=== PATIENT | female | born 2000 | race Caucasian/White ===

== ENCOUNTER 2018-03-18 14:09 | Inpatient (IN) | payer MEDICAID ==
[2018-03-18 15:29] LABS: RUPTURE FETAL MEMBRANES NEGATIVE (NEGATIVE)
[2018-03-18] MEDS: DEXTROSE 5%-LR 1,000 ML IV ×2 (15:52→23:52)
[2018-03-18] MEDS ORDERED: OXYTOCIN 30 UNITS/LR 500 ML IV (16:00)
[2018-03-18] MEDS ORDERED: METHYLERGONOVINE 0.2 MG INJ IM (16:00)
[2018-03-18] MEDS ORDERED: LIDOCAINE 1% (MPF) 30 ML INJ INJ (16:00)
[2018-03-18] MEDS ORDERED: CARBOPROST 250 MCG INJ IM (16:00)
[2018-03-18] MEDS ORDERED: MISOPROSTOL 200 MCG TAB PR (16:00)
[2018-03-18] MEDS ORDERED: IBUPROFEN 600 MG TAB PO (16:00)
[2018-03-18] MEDS ORDERED: BUTORPHANOL 2 MG INJ IV (16:00)
[2018-03-18] MEDS: AMPICILLIN 2 GM/NS (PMX) 100 ML IV (16:22)
[2018-03-18 16:24] LABS: ADD MAN DIFF? NO
[2018-03-18 16:28] LABS: WHITE BLOOD COUNT 8.8 10^3/ul (4.8-10.8)
[2018-03-18 16:28] LABS: BASOPHILS % 0.3 % (0.0-2.0); EOSINOPHILS # 0.1 10^3/ul (0.0-0.5); EOSINOPHILS % 1.6 % (0.0-7.0); HEMATOCRIT 29.8 % (37.0-47.0); LYMPHOCYTES # 1.8 10^3/ul (0.8-2.9); LYMPHOCYTES % 20.8 % (18.0-55.0); MEAN CORPUSCULAR HEMOGLOBIN 27.9 pg (29.0-33.0); MEAN CORPUSCULAR HGB CONC 33.6 g/dl (32.0-37.0); MEAN CORPUSCULAR VOLUME 83.2 fl (72.0-104.0); MONOCYTE # 0.7 10^3/ul (0.3-0.9); MONOCYTES % 7.5 % (0.0-13.0); NEUTROPHIL # 6.1 10^3/ul (1.6-7.5); NEUTROPHILS % 69.2 % (30.0-74.0); PLATELET COUNT 209 10^3/UL (140-415); RED BLOOD COUNT 3.58 10^6/ul (4.20-5.40); RED CELL DISTRIBUTION WIDTH 15.1 % (11.5-14.5)
[2018-03-18 16:48] LABS: INR 0.87; PROTIME 11.9 Sec (11.9-14.9); PT RATIO 0.9
[2018-03-18 16:49] LABS: PARTIAL THROMBOPLASTIN TIME 25.1 Sec (23.0-35.0)
[2018-03-18 17:17] LABS: HEPATITIS B SURFACE ANTIGEN NEGATIVE (NEGATIVE)
[2018-03-18 19:11] LABS: HIV 1&2 ANTIBODY NEGATIVE (NEGATIVE)
[2018-03-18] MEDS: LACTATED RINGER'S 1,000 ML IV ×2 (19:40→23:49)
[2018-03-18] MEDS: AMPICILLIN 1 GM/NS (PMX) 50 ML IV ×2 (19:57→23:29)
[2018-03-18 22:59] LABS: AMPHETAMINE/METHAMPHETAMINE Negative (NEGATIVE); BARBITURATES Negative (NEGATIVE); BENZODIAZEPINES Negative (NEGATIVE); CANNABINOIDS Negative (NEGATIVE); COCAINE Negative (NEGATIVE); OPIATES Negative (NEGATIVE)
[2018-03-19] MEDS ORDERED: FENTAnyl 2MCG/ML-ROPIV 0.2% 100 ML (00:10)
[2018-03-19] MEDS ORDERED: DIPHENHYDRAMINE 50 MG INJ IV (00:30)
[2018-03-19] MEDS ORDERED: NALBUPHINE HCL (10 MG/1 ML) INJ IV (00:30)
[2018-03-19] MEDS ORDERED: NALOXONE (0.4 MG/ML) INJ IV (00:30)
[2018-03-19] MEDS ORDERED: ONDANSETRON 4 MG INJ IV (00:30)
[2018-03-19] MEDS: AMPICILLIN 1 GM/NS (PMX) 50 ML IV ×2 (03:56→08:14)
[2018-03-19] MEDS: LACTATED RINGER'S 1,000 ML IV ×2 (06:01→17:30)
[2018-03-19] MEDS: DEXTROSE 5%-LR 1,000 ML IV ×3 (07:52→23:52)
[2018-03-19] MEDS: FENTAnyl 2MCG/ML-ROPIV 0.2% 100 ML BAG EPI (08:13)
[2018-03-19] MEDS: OXYTOCIN 30 UNITS/LR 500 ML IV ×3 (09:15→15:32)
[2018-03-19] MEDS ORDERED: ZOLPIDEM 5 MG TAB PO (11:00)
[2018-03-19] MEDS ORDERED: OXYTOCIN 30 UNITS/LR 500 ML IV (11:00)
[2018-03-19] MEDS ORDERED: SENNA/DOCUSATE NA (8.6MG/50MG) TAB PO (11:00)
[2018-03-19] MEDS ORDERED: METHYLERGONOVINE 0.2 MG INJ IM (11:00)
[2018-03-19] MEDS ORDERED: MISOPROSTOL 200 MCG TAB PR (11:00)
[2018-03-19] MEDS ORDERED: NACL 0.9% 3 ML SYG IV (11:00)
[2018-03-19] MEDS ORDERED: CARBOPROST 250 MCG INJ IM (11:00)
[2018-03-19] MEDS: BENZOCAINE 20% 56 ML SPRAY TOP (12:41)
[2018-03-19] MEDS: LANOLIN HPA 1 PKT TOP (12:42)
[2018-03-19] MEDS: WITCH HAZEL/GLYCERIN PAD PR (12:42)
[2018-03-19] MEDS: IBUPROFEN 600 MG TAB PO ×2 (12:43→17:44)
[2018-03-19] MEDS: OXYCODONE/ASPIRIN (4.88/325) TAB PO (18:46)
[2018-03-19 22:02] LABS: RAPID PLASMA REAGIN NONREACTIVE (NR)
[2018-03-19] MEDS: SENNA/DOCUSATE NA (8.6MG/50MG) TAB PO (22:02)
[2018-03-20] MEDS: IBUPROFEN 600 MG TAB PO ×5 (00:07→23:51)
[2018-03-20] MEDS: LACTATED RINGER'S 1,000 ML IV (01:23)
[2018-03-20] MEDS: DEXTROSE 5%-LR 1,000 ML IV ×3 (06:02→23:52)
[2018-03-20 08:25] LABS: ADD MAN DIFF? NO
[2018-03-20 08:32] LABS: WHITE BLOOD COUNT 10.7 10^3/ul (4.8-10.8)
[2018-03-20 08:32] LABS: BASOPHILS % 0.3 % (0.0-2.0); EOSINOPHILS # 0.2 10^3/ul (0.0-0.5); EOSINOPHILS % 1.4 % (0.0-7.0); HEMOGLOBIN 9.8 g/dl (12.0-16.0); LYMPHOCYTES # 2.4 10^3/ul (0.8-2.9); LYMPHOCYTES % 22.7 % (18.0-55.0); MEAN CORPUSCULAR HEMOGLOBIN 27.7 pg (29.0-33.0); MEAN CORPUSCULAR HGB CONC 32.7 g/dl (32.0-37.0); MEAN CORPUSCULAR VOLUME 84.7 fl (72.0-104.0); MEAN PLATELET VOLUME 11.1 fl (7.4-10.4); MONOCYTE # 0.7 10^3/ul (0.3-0.9); MONOCYTES % 6.2 % (0.0-13.0); NEUTROPHIL # 7.4 10^3/ul (1.6-7.5); NEUTROPHILS % 68.9 % (30.0-74.0); PLATELET COUNT 208 10^3/UL (140-415); RED BLOOD COUNT 3.54 10^6/ul (4.20-5.40); RED CELL DISTRIBUTION WIDTH 15.5 % (11.5-14.5)
[2018-03-20] MEDS: SENNA/DOCUSATE NA (8.6MG/50MG) TAB PO ×2 (10:20→21:14)
[2018-03-20 11:51] LABS: RUBELLA ANTIBODY - IGG <0.90 index; RUBELLA ANTIBODY - IGM <20.00 AU/mL
[2018-03-21] MEDS: IBUPROFEN 600 MG TAB PO ×2 (05:53→12:00)
[2018-03-21] MEDS: SENNA/DOCUSATE NA (8.6MG/50MG) TAB PO (10:13)
[2018-03-21] MEDS: DIPHTH/TET/ACEL PERTUSS (ADULT) 0.5 ML VIAL IM* (14:57)
[2018-03-21] MEDS ORDERED: VITAMIN A & D 5 GM OINT PACKET TOP (15:46)
== END 2018-03-21 17:05 | disposition home or self-care (01) | DRG 807 ==
LOC: OBT 14:09 → PP1 03-19 10:41 → L-D 14:10 → OBT 15:33 → L-D 15:33
PROVIDERS: Obstetrics & Gynecology
PROC: 10E0XZZ Delivery of Products of Conception, External Approach (ICD-10-PCS; principal; 2018-03-19)
DX: O80 Encounter for full-term uncomplicated delivery (principal); Z37.0 Single live birth; Z3A.38 38 weeks gestation of pregnancy; Z23 Encounter for immunization
CPT/HCPCS: 62319; 76815; 76818; 80307; 84112; 85025; 85610; 85730; 86592; 86703; 86762; 86900; 86901; 87340; 90686; 90715